=== PATIENT | female | born 1980 | race Caucasian/White ===

== ENCOUNTER 2025-03-04 06:37 | Day surgery (SDC) | payer OTHER ==
[2025-02-26 10:10] VITALS: BMI 23.3
[2025-03-04] MEDS ORDERED: Lidocaine 1% PF 5 ML VIAL ONE (10:02)
[2025-03-04] MEDS ORDERED: PROPOFOL 40 ML ONE (10:02)
== END 2025-03-04 11:38 | disposition home or self-care (01) ==
LOC: CSHSDC 06:37
PROVIDERS: ATTEND Surgery
PROC: 0DBE8ZZ Excision of Large Intestine, Via Natural or Artificial Opening Endoscopic (ICD-10-PCS; principal; 2025-03-04)
PROC: 0DBK8ZX Excision of Ascending Colon, Via Natural or Artificial Opening Endoscopic, Diagnostic (ICD-10-PCS; principal; 2025-03-04)
DX: D12.2 Benign neoplasm of ascending colon (principal); K63.5 Polyp of colon; K57.30 Diverticulosis of large intestine without perforation or abscess without bleeding; I10 Essential (primary) hypertension; Z88.8 Allergy status to other drugs, medicaments and biological substances; Z98.51 Tubal ligation status; Z79.899 Other long term (current) drug therapy
CPT/HCPCS: 88305; J2704